=== PATIENT | female | born 1940 | race Caucasian/White ===

== ENCOUNTER 2021-09-29 12:55 | Day surgery (SDC) | payer MEDICARE, OTHER ==
[2021-09-24 12:08] LABS: ANION GAP 14 (8-16); BLOOD UREA NITROGEN 15 MG/DL (7-18); BUN/CREATININE RATIO 14.3 (6.6-38.0); CHLORIDE 102 MMOL/L (99-107); CREATININE 1.05 MG/DL (0.40-0.90); GLUCOSE 210 MG/DL (70-104); POTASSIUM 5.1 MMOL/L (3.5-5.1); SODIUM 138 MMOL/L (135-145); TOTAL CARBON DIOXIDE 22.2 MMOL/L (24-32)
[2021-09-24 12:09] LABS: ALBUMIN 2.5 G/DL (3.4-5.0); CALCIUM 9.3 MG/DL (8.5-10.1); eGFR 50 ML/MIN
[2021-09-24 12:11] LABS: BASOPHILS # (AUTO) 0.1 X10'3 (0-0.2); BASOPHILS % (AUTO) 0.7 % (0-1); EOSINOPHILS # (AUTO) 0.1 X10'3 (0-0.9); EOSINOPHILS % (AUTO) 0.8 % (0-6); HEMATOCRIT 33.6 % (35.0-45.0); HEMOGLOBIN 11.3 g/dl (12.0-16.0); LYMPHOCYTES % (AUTO) 12.4 % (21-51); MEAN CORPUSCULAR HEMOGLOBIN 28.7 PG (27.0-31.0); MEAN CORPUSCULAR HGB CONC 33.7 g/dL (33.0-36.5); MEAN CORPUSCULAR VOLUME 85.2 FL (78-98); MEAN PLATELET VOLUME 8.5 FL (7.4-10.4); MONOCYTES # (AUTO) 0.7 X10'3 (0-0.9); MONOCYTES % (AUTO) 8.5 % (2-12); NEUTROPHILS % (AUTO) 77.6 % (42-75); PLATELET COUNT 465 X10'3 (140-440); RED BLOOD COUNT 3.95 X10'6 (4.20-5.60); WHITE BLOOD COUNT 7.7 X10'3 (4.5-11.0)
[2021-09-24 12:43] LABS: PARTIAL THROMBOPLASTIN TIME 41 SECONDS (22-32)
[2021-09-29] VITALS (9 sets, daily range): BP systolic 114–150; BP diastolic 48–84
[~2021-09-29] VITALS: Ht 165.1 cm; Wt 71.2 kg
[2021-09-29] MEDS ORDERED: normal saline 1,000 ML IV SCH (13:35)
[2021-09-29] MEDS ORDERED: diphenhydrAMINE 25mg capsule PO PRN (13:35)
[2021-09-29] MEDS ORDERED: LORazepam 0.5 MG tablet PO PRN (13:35)
[2021-09-29] MEDS ORDERED: GLIP10TA21 PO (13:58)
[2021-09-29] MEDS ORDERED: CARV6.253 PO (13:58)
[2021-09-29] MEDS ORDERED: AMIT25TA9 PO (13:58)
[2021-09-29] MEDS ORDERED: LEVO500T90 PO (13:58)
[2021-09-29] MEDS ORDERED: DULA1.5P SQ (13:58)
[2021-09-29] MEDS ORDERED: METF-900 PO (13:58)
[2021-09-29] MEDS ORDERED: ATOR40TA72 PO (13:58)
[2021-09-29] MEDS ORDERED: RIVA20TA PO (13:58)
[2021-09-29] MEDS ORDERED: FERR325T28 PO (14:03)
[2021-09-29] MEDS ORDERED: MAGNESIUM PO (14:03)
[2021-09-29] MEDS ORDERED: INSU100I25 SQ (14:03)
[2021-09-29] MEDS ORDERED: CHOL100046 PO (14:03)
[2021-09-29] MEDS ORDERED: MULT-1085 PO (14:03)
[2021-09-29] MEDS ORDERED: METR-159 PO (14:03)
[2021-09-29] MEDS ORDERED: nitroGLYCERIN-Tridil 50MG/D5W 250 ML IV ONE (15:05)
[2021-09-29] MEDS ORDERED: LIDOcaine 1% (10mg/ml)w/preservative injection 20ml MDV ONE (15:05)
[2021-09-29] MEDS ORDERED: verapamil 2.5 mg/ml inj IV ONE (15:05)
[2021-09-29] MEDS ORDERED: heparin 1,000unit/ml 10ml vial 10 ML ONE (15:05)
[2021-09-29] MEDS ORDERED: midazolam 1 mg/ML 2ml injection ONE (15:05)
[2021-09-29] MEDS ORDERED: iohexol 350MG/ML 100ml bottle IV ONE (15:05)
[2021-09-29] MEDS ORDERED: fentaNYL/PF 50MCG/1 ML 2ML syringe ONE (15:05)
[2021-09-29] MEDS ORDERED: HYDROcodone/acetaminophen 10/325mg tab PO PRN (16:25)
[2021-09-29] MEDS ORDERED: OXAZEpam 15mg capsule PO PRN (16:25)
[2021-09-29] MEDS ORDERED: proCHLORperazine 10 MG/2 ml inj IV PRN (16:25)
[2021-09-29] MEDS ORDERED: ondansetron/PF 4mg/2ml inj IV PRN (16:25)
[2021-09-29] MEDS ORDERED: HYDROcodone/acetaminophen 5mg/325mg tablet PO PRN (16:25)
== END 2021-09-29 20:10 | disposition home or self-care (01) ==
LOC: SSTAY O 12:55
PROVIDERS: ATTEND Internal Medicine Interventional Cardiology
DX: R94.39 Abnormal result of other cardiovascular function study (principal); I25.10 Atherosclerotic heart disease of native coronary artery without angina pectoris; G47.33 Obstructive sleep apnea (adult) (pediatric); I10 Essential (primary) hypertension; I48.0 Paroxysmal atrial fibrillation; E11.9 Type 2 diabetes mellitus without complications; I65.29 Occlusion and stenosis of unspecified carotid artery; Z86.73 Personal history of transient ischemic attack (TIA), and cerebral infarction without residual deficits; Z79.899 Other long term (current) drug therapy; Z79.4 Long term (current) use of insulin; Z91.040 Latex allergy status; Z88.0 Allergy status to penicillin; Z88.8 Allergy status to other drugs, medicaments and biological substances
CPT/HCPCS: 36415; 80048; 82948; 85025; 85610; 85730; 93005; 93458; 99152; 99153; C1769; C1894; J1644; J2001; J2250; J3010; J7030; Q0163; Q9967; A5120; A6258; J3490

== ENCOUNTER 2021-10-05 13:37 | Day surgery (SDC) | payer MEDICARE, OTHER ==
[2021-10-05] VITALS (8 sets, daily range): BP systolic 137–162; BP diastolic 52–67
[~2021-10-05] VITALS: Ht 162.6 cm; Wt 69.5 kg
[~2021-10-05 13:37] MED LIST: AMIT25TA9 PO; ATOR40TA72 PO; CARV6.253 PO; CHOL100046 PO; DULA1.5P SQ; FERR325T28 PO; GLIP10TA21 PO; INSU100I25 SQ; LEVO500T90 PO; MAGNESIUM PO; METF-900 PO; METR-159 PO; MULT-1085 PO; RIVA20TA PO
[2021-10-05] MEDS ORDERED: normal saline 1,000 ML IV SCH (14:05)
[2021-10-05] MEDS ORDERED: LORazepam 0.5 MG tablet PO PRN (14:05)
[2021-10-05] MEDS ORDERED: diphenhydrAMINE 25mg capsule PO PRN (14:05)
[2021-10-05 14:55] LABS: BASOPHILS # (AUTO) 0.1 X10'3 (0-0.2); BASOPHILS % (AUTO) 1.4 % (0-1); EOSINOPHILS # (AUTO) 0.2 X10'3 (0-0.9); EOSINOPHILS % (AUTO) 3.4 % (0-6); HEMATOCRIT 33.9 % (35.0-45.0); HEMOGLOBIN 11.3 g/dl (12.0-16.0); LYMPHOCYTES # (AUTO) 1.4 X10'3 (1.1-4.8); LYMPHOCYTES % (AUTO) 24.4 % (21-51); MEAN CORPUSCULAR HEMOGLOBIN 28.2 PG (27.0-31.0); MEAN CORPUSCULAR HGB CONC 33.3 g/dL (33.0-36.5); MEAN CORPUSCULAR VOLUME 84.5 FL (78-98); MEAN PLATELET VOLUME 8.3 FL (7.4-10.4); MONOCYTES # (AUTO) 0.6 X10'3 (0-0.9); MONOCYTES % (AUTO) 11.1 % (2-12); NEUTROPHILS # (AUTO) 3.4 X10'3 (1.8-7.7); NEUTROPHILS % (AUTO) 59.7 % (42-75); PLATELET COUNT 431 X10'3 (140-440); RED BLOOD COUNT 4.02 X10'6 (4.20-5.60); RED CELL DISTRIBUTION WIDTH 19.3 % (11.5-14.5); WHITE BLOOD COUNT 5.6 X10'3 (4.5-11.0)
[2021-10-05 15:02] LABS: ALBUMIN 2.8 G/DL (3.4-5.0); ANION GAP 10 (8-16); BLOOD UREA NITROGEN 15 MG/DL (7-18); BUN/CREATININE RATIO 17.2 (6.6-38.0); CALCIUM 9.3 MG/DL (8.5-10.1); CHLORIDE 99 MMOL/L (99-107); CREATININE 0.87 MG/DL (0.40-0.90); GLUCOSE 152 MG/DL (70-104); POTASSIUM 4.3 MMOL/L (3.5-5.1); SODIUM 135 MMOL/L (135-145); TOTAL CARBON DIOXIDE 25.9 MMOL/L (24-32); eGFR 62 ML/MIN
[2021-10-05 15:05] LABS: PARTIAL THROMBOPLASTIN TIME 22 SECONDS (22-32)
[2021-10-05 15:28] LABS: ANISOCYTOSIS 2+; GIANT PLATELET FEW; LARGE PLATELETS FEW; PLATELET ESTIMATE NORMAL
[2021-10-05 15:29] LABS: HYPOCHROMASIA 1+
[2021-10-05] MEDS ORDERED: fentaNYL/PF 50MCG/1 ML 2ML syringe ONE (15:54)
[2021-10-05] MEDS ORDERED: midazolam 1 mg/ML 2ml injection ONE (15:54)
[2021-10-05] MEDS ORDERED: LIDOcaine 1% (10mg/ml)w/preservative injection 20ml MDV ONE (15:55)
[2021-10-05] MEDS ORDERED: iohexol 350 MG/1 ML 200ml bottle ONE (15:55)
[2021-10-05] MEDS ORDERED: heparin 1,000unit/ml 10ml vial 10 ML ONE (15:55)
[2021-10-05] MEDS ORDERED: clopidogrel 300mg tablet ONE (16:59)
[2021-10-05] MEDS ORDERED: aspirin 81mg tab.chew ONE (17:06)
[2021-10-05] MEDS ORDERED: ondansetron/PF 4mg/2ml inj IV PRN (17:40)
[2021-10-05] MEDS ORDERED: HYDROcodone/acetaminophen 10/325mg tab PO PRN (17:45)
[2021-10-05] MEDS ORDERED: OXAZEpam 15mg capsule PO PRN (17:45)
[2021-10-05] MEDS ORDERED: proCHLORperazine 10 MG/2 ml inj IV PRN (17:45)
[2021-10-05] MEDS ORDERED: HYDROcodone/acetaminophen 5mg/325mg tablet PO PRN (17:45)
== END 2021-10-05 19:50 | disposition home or self-care (01) ==
LOC: SSTAY O 13:37
PROVIDERS: ATTEND Internal Medicine Interventional Cardiology
DX: I25.10 Atherosclerotic heart disease of native coronary artery without angina pectoris (principal); G47.33 Obstructive sleep apnea (adult) (pediatric); I10 Essential (primary) hypertension; E11.9 Type 2 diabetes mellitus without complications; I48.0 Paroxysmal atrial fibrillation; I65.29 Occlusion and stenosis of unspecified carotid artery; Z79.01 Long term (current) use of anticoagulants; Z79.899 Other long term (current) drug therapy; Z86.73 Personal history of transient ischemic attack (TIA), and cerebral infarction without residual deficits; Z88.8 Allergy status to other drugs, medicaments and biological substances; Z88.0 Allergy status to penicillin; Z91.040 Latex allergy status
CPT/HCPCS: 80048; 82948; 85025; 85610; 85730; 93005; 99152; C1725; C1751; C1760; C1769; C1874; C9600; J1644; J2250; J3010; J3490; J7030; Q0163; Q9967; 85008; 99153; A6258